=== PATIENT | male | born 2000 | race Two or more races ===

== ENCOUNTER 2019-03-16 13:38 | Emergency (ER) | payer BC, OTHER ==
[~2019-03-16] VITALS: Ht 175.3 cm; Wt 84.8 kg
[2019-03-16 13:44] VITALS: BP 146/84
[2019-03-16] MEDS ORDERED: methylPREDNISolone SOD SUCC 125 MG/2 ML VL IM ONE (14:15)
[2019-03-16] MEDS ORDERED: cefTRIAXone SOD 1,000 MG VL IM ONE (14:15)
== END 2019-03-16 14:44 | disposition home or self-care (01) ==
LOC: ER 13:40
DX: J03.90 Acute tonsillitis, unspecified (principal); H66.92 Otitis media, unspecified, left ear; I10 Essential (primary) hypertension; Z90.49 Acquired absence of other specified parts of digestive tract
CPT/HCPCS: 96372; 99283; J0696; J2930

== ENCOUNTER 2019-04-14 14:58 | Inpatient (IN) | payer OTHER ==
[~2019-04-14] VITALS: Ht 175.3 cm; Wt 79.0 kg
[2019-04-14] MEDS ORDERED: SODIUM CHLORIDE 0.9% 1,000 ML IVB ONE (15:52)
[2019-04-14] MEDS ORDERED: ONDANSETRON HCL 4 MG/2 ML VIAL IV ONE ×2 (16:00→17:15)
[2019-04-14 16:17] LABS: Albumin 2.8 g/dL (3.4-5.0); Potassium 3.2 mmol/L (3.5-5.1)
[2019-04-14 16:18] LABS: Basophils # (auto) 0 uL; Eosinophils # (auto) 0.1 uL; Hematocrit 42.9 % (41.0-53.0); Hemoglobin 14.4 g/dL (13.5-17.5)
[2019-04-14 16:19] LABS: Basophils % (auto) 0.1 % (0.0-2.0); Eosinophils % (auto) 0.5 % (0.0-7.0); Lymphocytes # (auto) 0.4 uL; Lymphocytes % (auto) 2.7 % (10.0-50.0); Mean Corpuscular Hgb Conc. 33.5 g/dL (32.0-36.0); Mean Corpuscular Volume 77.6 fL (80.0-100.0); Monocytes # (auto) 0.2 uL; Monocytes % (auto) 1.6 % (0.0-12.0); Neutrophils # (auto) 14.9 uL; Neutrophils % (auto) 95.1 % (37.0-80.0); Platelet Count (auto) 270 10^3/uL (140-450); Red Blood Cells 5.53 10^6/uL (4.5-5.90); Red Cell Distribution Width 14.8 % (11.8-14.3); White Blood Cell 15.6 10^3/uL (4.4-10.8)
[2019-04-14 16:20] LABS: BUN/Creatinine Ratio 11.9; Bilirubin, Total 0.7 mg/dL (0.2-1.0); Calcium 8.6 mg/dL (8.5-10.1); Total Protein 8.6 g/dL (6.4-8.2)
[2019-04-14 16:47] LABS: INR 1.2 (0.9-1.15)
[2019-04-14 16:48] LABS: Magnesium 2.6 mg/dL (1.6-2.6)
[2019-04-14] MEDS ORDERED: MORPHINE SULF INJ 2 MG/ML SYRINGE 1ML IV ONE (17:15)
[2019-04-14] MEDS ORDERED: cefTRIAXone 1GM/50ML D5W 50 ML IV ONE (17:15)
[2019-04-14 17:31] LABS: Lactic Acid w/Reflex 2.1 mmol/L (0.4-2.0)
[2019-04-14] MEDS ORDERED: NITROGLYCERIN 0.4 MG SL TAB SL PRN (18:00)
[2019-04-14] MEDS ORDERED: ACETAMINOPHEN 500 MG TAB PO PRN (18:00)
[2019-04-14] MEDS ORDERED: MORPHINE SULF INJ 2 MG/ML SYRINGE 1ML IV PRN (18:00)
[2019-04-14] MEDS ORDERED: POTASSIUM CHL 20 Meq TABLET PO ONE (18:15)
[2019-04-14] MEDS: AZITHROMYCIN 500MG/ 250ML 250 ML IV SCH (18:41)
[2019-04-14] MEDS: IPRATROPIUM BROM 0.5 MG/2.5ML INH SOL NEB SCH (18:42)
[2019-04-14] MEDS: ALBUTEROL SULF 2.5 MG/0.5ML(0.5%) NEB SOLN NEB SCH (18:42)
[2019-04-14 19:37] VITALS: BP 136/77
[2019-04-14 19:52] VITALS: BP 140/72
--- NOTE | 2019-04-14 20:16 | NUR ---
Telemetry admit from ER SANDY ALAS admitted to Telemetry unit after SBAR received. Patient oriented to Don Mae, primary RN, unit, room, bed, and unit policies regarding patient care and visiting hours. Patient now on continuous telemetry monitoring, tele box # [28] and telemetry reading on arrival to unit is [ST 104]. Patient placed on bedside oxygen, weighed by bedscale and encouraged to call if they need something. All questions and concerns addressed, patient verbalized understanding. Note: []
--- NOTE | 2019-04-14 21:00 | NUR ---
URINE SAMPLE AND FLU SWAB COLLECTED AND SENT TO LAB. CONTINUE TO MONITOR.
[2019-04-14 21:10] LABS: Urine Bacteria FEW /hpf (None Seen); Urine Blood Negative /uL (Negative); Urine Mucus FEW (None Seen); Urine Specific Gravity 1.038 (1.001-1.035); Urine WBC 3 /hpf (0 - 3)
[2019-04-14 21:29] LABS: Amphetamine Screen, Urine NEGATIVE (NEGATIVE); Barbiturate Scree,Urine NEGATIVE (NEGATIVE); Benzodiazephine Screen, Urine NEGATIVE (NEGATIVE); Cocaine Screen, Urine NEGATIVE (NEGATIVE); Opiate Scree,Urine NEGATIVE (NEGATIVE); Phencyclidine Screen, Urine NEGATIVE (NEGATIVE)
[2019-04-14 21:45] LABS: Cannabinoid Screen, Urine POSITIVE (NEGATIVE)
[2019-04-14] MEDS: MORPHINE SULF INJ 2 MG/ML SYRINGE 1ML IV PRN (21:46)
[2019-04-14] MEDS: ONDANSETRON HCL 4 MG/2 ML VIAL IV PRN (21:46)
--- NOTE | 2019-04-14 21:50 | NUR ---
PATIENT C/O PAIN @ 03/30. MEDICATED PATIENT ORDERED. CONTINUE TO MONITOR.
[2019-04-14 22:00] VITALS: BP 140/74
--- NOTE | 2019-04-14 22:45 | NUR ---
RT PAGED FOR PATIENT. PATIENT WOULD LIKE TO HAVE MASK INSTEAD OF NC FOR OXYGEN. INSTRUCTED PATIENT THAT HE DID NOT NEED MORE OXYGEN. BUT PATIENT STATED THAT HE DID NOT LIKE THE NC. RT WILL COME TO CHECK PATIENT LATER. CONTINUE TO MONITOR.
--- NOTE | 2019-04-14 22:50 | NUR ---
Respiratory note: CALLED TO BEDSIDE BY RN REGARDING PTS O2. ENTERED ROOM, PT COMPLAINING THAT N/C IS UNCOMFORTABLE AND HE IS NOT ABLE TO SLEEP WITH IT. PT IS ON 2L N/C, 94%. INFORMED PT HIS O2 SATURATION IS SUFFICIENT AND HE DOES NOT NEED TO WEAR A MASK. PT VERBALIZED UNDERSTANDING.
[2019-04-14] MEDS ORDERED: ACET1CAP14 PO (23:53)
[2019-04-14] MEDS ORDERED: CIPR-217 PO (23:53)
[2019-04-14] MEDS ORDERED: METR500T14 PO (23:53)
[2019-04-14] MEDS ORDERED: OMEP20TA PO (23:53)
[2019-04-14] MEDS ORDERED: ONDA-144 PO (23:53)
--- NOTE | 2019-04-15 01:30 | NUR ---
RT PAGED AGAIN FOR PATIENT TO CHANGE TO MASK INSTEAD OF NC. PATIENT'S O2 SAT WAS 84% ON RA, AND 92% ON 2L/NC. NEED RT COME TO CHECK PATIENT FOR THAT. CONTINUE TO MONITOR.
[2019-04-15] MEDS: MORPHINE SULF INJ 2 MG/ML SYRINGE 1ML IV PRN ×4 (01:51→18:07)
[2019-04-15] MEDS: ONDANSETRON HCL 4 MG/2 ML VIAL IV PRN ×3 (01:52→21:41)
--- NOTE | 2019-04-15 01:52 | NUR ---
PAIN MEDICATION GIVEN FOR PAIN @ 04/30. CONTINUE TO MONITOR.
--- NOTE | 2019-04-15 02:15 | NUR ---
RT AT BEDSIDE
--- NOTE | 2019-04-15 02:17 | NUR ---
Respiratory note: CALLED TO PTS BEDSIDE BY RN DUE TO PT COMPLA Addendum: 04/15/19 at 0253 by JULIET GUARDADO RT Respiratory note: CALLED TO PTS BEDSIDE BY RN DUE TO PT COMPLAINING OF DISCOMFORT FROM N/C. PTS SPO2 90-91% ON 3L N/C IN PTS MOUTH. HR 110, RR 23. PT COMPLAINING THAT NC IS UNCOMFORTABLE AND DRYING HIS MOUTH OUT. PT PLACED ON HUMIDIFIED O2 VIA N/C, INCREASED TO 4LPM AND PLACED BACK IN PTS NOSE. INSTRUCTED PT ON IMPORTANCE OF WEARING OXYGEN, PT VERBALIZED UNDERSTANDING. WILL CHECK BACK ON PT.
--- NOTE | 2019-04-15 03:33 | NUR ---
PATIENT'S TEMP 101. MEDICATED PATIENT ORDERED. CONTINUE TO MONITOR.
[2019-04-15 04:37] VITALS: BP 158/80
[2019-04-15] MEDS: ALBUTEROL SULF 2.5 MG/0.5ML(0.5%) NEB SOLN NEB SCH ×3 (05:48→19:14)
[2019-04-15] MEDS: IPRATROPIUM BROM 0.5 MG/2.5ML INH SOL NEB SCH ×3 (05:48→19:14)
--- NOTE | 2019-04-15 05:59 | NUR ---
PAIN MEDICATION GIVEN FOR PAIN @ 04/30. CONTINUE TO MONITOR.
--- NOTE | 2019-04-15 06:01 | NUR ---
RT AT BEDSIDE.
[2019-04-15 06:11] LABS: Basophils # (auto) 0 uL; Eosinophils # (auto) 0.1 uL; Mean Corpuscular Hemoglobin 26.3 pg (28.0-32.0); Monocytes # (auto) 0.3 uL
[2019-04-15 06:15] LABS: Basophils % (auto) 0.2 % (0.0-2.0); Eosinophils % (auto) 0.6 % (0.0-7.0); Hematocrit 39.5 % (41.0-53.0); Hemoglobin 13.4 g/dL (13.5-17.5); Lymphocytes # (auto) 0.5 uL; Lymphocytes % (auto) 3.6 % (10.0-50.0); Mean Corpuscular Hgb Conc. 33.9 g/dL (32.0-36.0); Mean Corpuscular Volume 77.5 fL (80.0-100.0); Monocytes % (auto) 2.6 % (0.0-12.0); Neutrophils # (auto) 11.6 uL; Platelet Count (auto) 207 10^3/uL (140-450); Red Cell Distribution Width 14.4 % (11.8-14.3); White Blood Cell 12.5 10^3/uL (4.4-10.8)
[2019-04-15 06:32] LABS: Potassium 3.4 mmol/L (3.5-5.1)
[2019-04-15 06:36] LABS: BUN/Creatinine Ratio 9.5; Calcium 7.6 mg/dL (8.5-10.1)
--- NOTE | 2019-04-15 07:08 | NUR ---
PATIENT ALERT AND ORIENTED. MULTIPLE COMPLAINTS OF PAIN LAST NIGHT. INFLUENZA A AND B REPORTED NEGATIVE BY MIXER FOAM RUBBER. PATIENT COMPLAINED OF COUGHING UP BLOOD BUT UNABLE TO DETERMINE IF BLOOD OR RED JELLO BY MIXER FOAM RUBBER
[2019-04-15 09:00] VITALS: BP 132/78
[2019-04-15] MEDS: cefTRIAXone 1GM/50ML D5W 50 ML IV SCH (09:14)
[2019-04-15] MEDS: AZITHROMYCIN 500MG/ 250ML 250 ML IV SCH (09:23)
[2019-04-15] MEDS: HYDROcodone-ACET 5/325MG TAB PO PRN ×2 (09:23→21:41)
[2019-04-15] MEDS: FAMOTIDINE 20 MG TAB PO SCH (09:24)
[2019-04-15] MEDS ORDERED: POTASSIUM CHL 20 Meq TABLET PO ONE (10:15)
[2019-04-15] MEDS ORDERED: FUROSEMIDE 20 MG/2 ML VIAL IV ONE (10:30)
--- NOTE | 2019-04-15 11:56 | NUR ---
Nutrition consult/assessment Notes please see attached link for complete assessment Est. Needs BW (85 kg): 0687-5071 kcal (23-25 kcal/kg), 85-93 g protein (1.0-1.1 g/kg). Will continue to monitor pertinent labs and reassess nutrient need prn Addendum: 04/15/19 at [address] Amended: Links added.
[2019-04-15 12:39] VITALS: BP 153/88
[2019-04-15] MEDS ORDERED: IOHEXOL 350 MG/ML 100ML IJ ONE (14:03)
[2019-04-15 17:00] VITALS: BP 153/77
[2019-04-15] MEDS ORDERED: LISINOPRIL 5 MG TAB PO ONE (17:00)
--- NOTE | 2019-04-15 18:17 | NUR ---
ALE HOSElia GIVEN AND PUT ONTO PATIENT PER DR. ADAMSON
[2019-04-15 18:56] LABS: Cholesterol 107 mg/dL (< 200); HDL Cholesterol 9 mg/dL (40-59); LDL Cholesterol 50 mg/dL (< 100); Triglycerides 191 mg/dL (< 150)
--- NOTE | 2019-04-15 19:30 | NUR ---
Opening Shift Note Assumed care of patient. Patient is awake and alert. Instructed on POC and to call for assist PRN, will continue to monitor. Bed locked in lowest position and bed rails up x2. Call light within reach.
--- NOTE | 2019-04-15 19:30 | NUR ---
RT at bedside
[2019-04-15 22:00] VITALS: BP 154/83
[2019-04-16] VITALS (7 sets, daily range): BP systolic 134–160; BP diastolic 70–100
[2019-04-16] MEDS: MORPHINE SULF INJ 2 MG/ML SYRINGE 1ML IV PRN ×3 (02:18→21:38)
[2019-04-16] MEDS: ALBUTEROL SULF 2.5 MG/0.5ML(0.5%) NEB SOLN NEB SCH ×3 (05:45→18:19)
[2019-04-16] MEDS: IPRATROPIUM BROM 0.5 MG/2.5ML INH SOL NEB SCH ×3 (05:45→18:19)
[2019-04-16 05:54] LABS: Albumin 2.4 g/dL (3.4-5.0); Calcium 8.5 mg/dL (8.5-10.1); Potassium 3.4 mmol/L (3.5-5.1)
[2019-04-16 05:59] LABS: BUN/Creatinine Ratio 12.2; Bilirubin, Total 0.7 mg/dL (0.2-1.0); Total Protein 7.8 g/dL (6.4-8.2)
[2019-04-16 06:06] LABS: Basophils # (auto) 0 uL; Basophils % (auto) 0.1 % (0.0-2.0); Eosinophils # (auto) 0.2 uL; Eosinophils % (auto) 1.4 % (0.0-7.0); Lymphocytes # (auto) 0.6 uL; Lymphocytes % (auto) 4.9 % (10.0-50.0); Mean Corpuscular Hemoglobin 26.1 pg (28.0-32.0); Mean Corpuscular Hgb Conc. 34.1 g/dL (32.0-36.0); Mean Corpuscular Volume 76.6 fL (80.0-100.0); Monocytes # (auto) 0.3 uL; Monocytes % (auto) 2.2 % (0.0-12.0); Neutrophils # (auto) 10.4 uL; Neutrophils % (auto) 91.4 % (37.0-80.0); Platelet Count (auto) 188 10^3/uL (140-450); Red Blood Cells 5.36 10^6/uL (4.5-5.90); Red Cell Distribution Width 14.6 % (11.8-14.3); White Blood Cell 11.4 10^3/uL (4.4-10.8)
[2019-04-16] MEDS: AZITHROMYCIN 500MG/ 250ML 250 ML IV SCH (09:08)
[2019-04-16] MEDS: cefTRIAXone 1GM/50ML D5W 50 ML IV SCH (09:08)
[2019-04-16] MEDS: FAMOTIDINE 20 MG TAB PO SCH (09:09)
[2019-04-16] MEDS: HYDROcodone-ACET 5/325MG TAB PO PRN (09:14)
[2019-04-16] MEDS: ONDANSETRON HCL 4 MG/2 ML VIAL IV PRN (09:18)
[2019-04-16] MEDS ORDERED: LISINOPRIL 5 MG TAB PO SCH (10:00)
[2019-04-16] MEDS ORDERED: POTASSIUM CHL 20 Meq TABLET PO ONE (10:30)
[2019-04-16] MEDS: LISINOPRIL 5 MG TAB PO SCH (11:52)
[2019-04-16] MEDS ORDERED: ALBUTEROL SULF 2.5 MG/0.5ML(0.5%) NEB SOLN ONE (21:23)
[2019-04-16] MEDS: ALBUTEROL SULF 2.5 MG/0.5ML(0.5%) NEB SOLN NEB PRN (21:30)
[2019-04-16] MEDS: TEMAZEPAM 15 MG CAP PO PRN (21:59)
[2019-04-17] VITALS (8 sets, daily range): BP systolic 134–146; BP diastolic 68–82
[2019-04-17] MEDS: HYDROcodone-ACET 5/325MG TAB PO PRN ×3 (01:28→18:23)
[2019-04-17] MEDS: IPRATROPIUM BROM 0.5 MG/2.5ML INH SOL NEB SCH ×3 (05:51→18:27)
[2019-04-17] MEDS: ALBUTEROL SULF 2.5 MG/0.5ML(0.5%) NEB SOLN NEB SCH ×3 (05:51→18:27)
[2019-04-17 05:59] LABS: Hemoglobin 14.6 g/dL (13.5-17.5)
--- NOTE | 2019-04-17 06:00 | NUR ---
IS and Deep Breathe exercises Patient instructed on indication for deep breathing exercise and incentive spirometer, patient verbalized understanding. Patient was able to return proper demonstration on teaching. Inspire volume 1000ml, tolerates well. On oxygen at 6L via NC.
[2019-04-17 06:02] LABS: Hematocrit 43.7 % (41.0-53.0); Mean Corpuscular Hgb Conc. 33.5 g/dL (32.0-36.0); Mean Corpuscular Volume 77.6 fL (80.0-100.0); Platelet Count (auto) 222 10^3/uL (140-450); Red Blood Cells 5.63 10^6/uL (4.5-5.90); Red Cell Distribution Width 14.8 % (11.8-14.3); White Blood Cell 9.3 10^3/uL (4.4-10.8)
[2019-04-17 06:28] LABS: BUN/Creatinine Ratio 14.5; Calcium 8.6 mg/dL (8.5-10.1); Potassium 3.7 mmol/L (3.5-5.1)
--- NOTE | 2019-04-17 07:00 | NUR ---
Closing Note patient awake resting in bed with oxygen on at 6L via NC with o2 sat 92%, even and unlabored respirations. No s/s of distress. Endorsed care to day shift JAD Akers.
[2019-04-17 07:11] LABS: Basophils % (manual) 0 (0.0-2.0); Blast Cells 0; Promyelocytes % 0; Reactive Lymphocytes 0
[2019-04-17 07:57] LABS: Band Neutrophils % (manual) 10; Eosinophils % (manual) 3 (0-7); Lymphocytes % (manual) 10 (10.0-50.0); Metamyelocytes % 3; Monocytes % (manual) 3 (0-12); Myelocytes % 1
[2019-04-17] MEDS: FAMOTIDINE 20 MG TAB PO SCH (09:07)
[2019-04-17] MEDS: AZITHROMYCIN 500MG/ 250ML 250 ML IV SCH (09:08)
[2019-04-17] MEDS: cefTRIAXone 1GM/50ML D5W 50 ML IV SCH (09:08)
[2019-04-17] MEDS: LISINOPRIL 5 MG TAB PO SCH ×2 (09:08→10:20)
[2019-04-17] MEDS: MORPHINE SULF INJ 2 MG/ML SYRINGE 1ML IV PRN ×3 (09:44→21:06)
[2019-04-17] MEDS ORDERED: POTASSIUM CHL 20 Meq TABLET PO ONE (10:00)
[2019-04-17] MEDS ORDERED: FUROSEMIDE 40 MG/4 ML VIAL IV ONE (10:00)
[2019-04-17] MEDS: ONDANSETRON HCL 4 MG/2 ML VIAL IV PRN ×2 (12:59→18:22)
--- NOTE | 2019-04-17 19:45 | NUR ---
Opening Shift Note Assumed care of patient, awake and alert, oriented x 4. On oxygen 6L via NC with even and unlabored respirations. Patient using incentive spirometer with proper return demonstration of 1500ml inspire volume. No S/S of distress or SOB at this time. 18g to left forearm intact and patent. Bed low locked position with side rails up x 2 and call light within reach. Family at bedside, updated on POC, all questions and concerns addressed. Instructed on POC and to call for assist PRN, will continue to monitor for changes Q1hr and PRN.
[2019-04-18] MEDS: HYDROcodone-ACET 5/325MG TAB PO PRN ×2 (01:53→11:31)
[2019-04-18] MEDS: TEMAZEPAM 15 MG CAP PO PRN (01:53)
[2019-04-18 05:37] VITALS: BP 137/72
[2019-04-18 05:58] LABS: Red Cell Distribution Width 14.5 % (11.8-14.3)
[2019-04-18 06:03] LABS: Hematocrit 47.4 % (41.0-53.0); Hemoglobin 15.8 g/dL (13.5-17.5); Mean Corpuscular Hemoglobin 25.6 pg (28.0-32.0); Mean Corpuscular Hgb Conc. 33.4 g/dL (32.0-36.0); Mean Corpuscular Volume 76.8 fL (80.0-100.0); Platelet Count (auto) 315 10^3/uL (140-450); Red Blood Cells 6.18 10^6/uL (4.5-5.90)
[2019-04-18 06:10] LABS: Albumin 3.2 g/dL (3.4-5.0); BUN/Creatinine Ratio 16.5; Calcium 9.1 mg/dL (8.5-10.1); Potassium 3.8 mmol/L (3.5-5.1)
[2019-04-18 06:11] LABS: Basophils % (manual) 0 (0.0-2.0); Blast Cells 0; Promyelocytes % 0; Reactive Lymphocytes 0
[2019-04-18 06:13] LABS: Bilirubin, Total 0.4 mg/dL (0.2-1.0); Total Protein 8.5 g/dL (6.4-8.2)
[2019-04-18] MEDS: ALBUTEROL SULF 2.5 MG/0.5ML(0.5%) NEB SOLN NEB SCH ×3 (06:35→18:23)
[2019-04-18] MEDS: IPRATROPIUM BROM 0.5 MG/2.5ML INH SOL NEB SCH ×3 (06:35→18:23)
--- NOTE | 2019-04-18 06:55 | NUR ---
Closing Note patient awake resting in bed with oxygen on at 4L via NC with even and unlabored respirations. No s/s of distress. Endorsed care to day shift RN Oswald.
[2019-04-18 08:00] VITALS: BP 112/72
[2019-04-18 08:03] LABS: Band Neutrophils % (manual) 7; Eosinophils % (manual) 3 (0-7); Lymphocytes % (manual) 17 (10.0-50.0); Metamyelocytes % 1; Monocytes % (manual) 1 (0-12); Myelocytes % 1
[2019-04-18 09:00] VITALS: BP 152/79
[2019-04-18] MEDS: MORPHINE SULF INJ 2 MG/ML SYRINGE 1ML IV PRN ×3 (09:24→20:20)
[2019-04-18] MEDS: AZITHROMYCIN 500MG/ 250ML 250 ML IV SCH (09:25)
[2019-04-18] MEDS: cefTRIAXone 1GM/50ML D5W 50 ML IV SCH (09:25)
[2019-04-18] MEDS: FAMOTIDINE 20 MG TAB PO SCH (09:27)
[2019-04-18] MEDS: LISINOPRIL 5 MG TAB PO SCH (09:27)
--- NOTE | 2019-04-18 11:17 | NUR ---
Nutrition Follow-up Notes Wt.: 82.3 kg pt was sleeping with no family by beside. pt with sepsis due to PNA. per nursing pt with no distress noted. pt is currently on regular diet with inadequate PO 50% x 2 per RN doc. Est. Needs BW (85 kg): 2093-1040 kcal (23-25 kcal/kg), 85-93 g protein (1.0-1.1 g/kg). Will continue to monitor pertinent labs and reassess nutrient need prn Labs: AST/ALT 122/180 H, ALB 3.2 L. Skin: Brett scale 22 low risk skin intact per RN doc GI: Pt has no BM reported per silk snapper. PES: Altered nutrition related lab values r/t acute/chronic medical condition aeb hyperglycemia, hypocalcemia Will continue to monitor PO intake, skin status, pertinent labs and weight trend. F/u in 3-5 days. Rec.: 1.) consider ensure Enlive 1 carton bid if PO is low. 2) continue assistance with meals 3) continue current plan of care
[2019-04-18 11:44] LABS: Hepatitis A Ab IgM Negative; Hepatitis B Core IgM Negative; Hepatitis B Surface Antigen Negative (Negative); Hepatitis C Antibody Negative (Negative)
--- NOTE | 2019-04-18 12:33 | NUR ---
I faxed higher level of care order/clinical information to [facility] as well as to [employer] (health plan)-requesting authorization for transfer and transportation.
--- NOTE | 2019-04-18 12:52 | NUR ---
I called [facility] [employer] Adrienne [phone] and left message requesting a list of contracted higher level of care facilities as well as authorization for transfer and transportation. Awaiting return call.
[2019-04-18 13:00] VITALS: BP 139/68
--- NOTE | 2019-04-18 14:16 | NUR ---
I faxed the higher level of care order/clinical information to [facility] and [facility].
--- NOTE | 2019-04-18 14:18 | NUR ---
I received a message from Adrienne at [facility] letting me know that prior authorization is not required for transfer to higher level of care or for transportation-for further questions she referred me to call their intake line [phone]. I called and it rang and rang.
--- NOTE | 2019-04-18 14:22 | NUR ---
I received a call from Holly at [facility] center, provided her with additional clinical information as requested, she will have her MD rosy Lal to determine if they are able to accept this patient.
[2019-04-18] MEDS: ONDANSETRON HCL 4 MG/2 ML VIAL IV PRN ×2 (15:44→20:21)
[2019-04-18] MEDS: ALPRAZolam 0.25 MG TAB PO PRN (15:45)
[2019-04-18 17:09] VITALS: BP 136/59
--- NOTE | 2019-04-18 19:30 | NUR ---
opening shift note; Awake alert and oriented. Complains of pain 02/27. Oxygen via NC. SOB on exertion or when removing O2. Skin clear. Iv to left FA patent and saline locked. Updated on POC and awaiting transfer. No distress at this time. Call light within reach
[2019-04-19 04:30] VITALS: BP 148/78
[2019-04-19 06:14] LABS: Albumin 3.3 g/dL (3.4-5.0); Calcium 8.6 mg/dL (8.5-10.1)
[2019-04-19 06:17] LABS: Bilirubin, Total 0.4 mg/dL (0.2-1.0); Total Protein 8.4 g/dL (6.4-8.2)
[2019-04-19] MEDS: MORPHINE SULF INJ 2 MG/ML SYRINGE 1ML IV PRN ×3 (06:17→17:03)
[2019-04-19] MEDS: ONDANSETRON HCL 4 MG/2 ML VIAL IV PRN ×3 (06:18→17:03)
[2019-04-19] MEDS: ALPRAZolam 0.25 MG TAB PO PRN (06:18)
[2019-04-19] MEDS: IPRATROPIUM BROM 0.5 MG/2.5ML INH SOL NEB SCH ×3 (06:50→18:51)
[2019-04-19] MEDS: ALBUTEROL SULF 2.5 MG/0.5ML(0.5%) NEB SOLN NEB SCH ×3 (06:50→18:51)
[2019-04-19] MEDS: HYDROcodone-ACET 5/325MG TAB PO PRN ×3 (08:22→21:01)
[2019-04-19 09:00] VITALS: BP 131/84
[2019-04-19] MEDS: cefTRIAXone 1GM/50ML D5W 50 ML IV SCH (09:39)
[2019-04-19] MEDS: LISINOPRIL 5 MG TAB PO SCH (09:52)
[2019-04-19] MEDS: FAMOTIDINE 20 MG TAB PO SCH (09:52)
[2019-04-19] MEDS: AZITHROMYCIN 500MG/ 250ML 250 ML IV SCH (09:52)
--- NOTE | 2019-04-19 10:05 | NUR ---
I spoke with Yari at [facility] transfer center, she said they are still in the process of verifying patient's insurance-I let her know that I faxed them a copy of patient's insurance card-she will review it and give me a call back.
--- NOTE | 2019-04-19 10:23 | NUR ---
I received a call from Yari at the [facility] transfer center, she said they are still having trouble verifying patient's financial information, in their system they are bringing the patient up as ineligible. I called [facility] [employer] Adrienne and left message asking for assistance in transferring this patient-requested faxed printout of patient's eligibility.
[2019-04-19 13:00] VITALS: BP 116/64
[2019-04-19 17:18] VITALS: BP 137/72
--- NOTE | 2019-04-19 17:29 | NUR ---
assessment Patient has no post discharge needs at this time. Addendum: 04/19/19 at 1730 by Yasmeen TUBBS Amended: Links added.
--- NOTE | 2019-04-19 19:14 | NUR ---
Opening Shift Note Assumed care of patient, awake and alert. No S/S of distress/SOB or pain. Bed is locked and in lowest position and call light is within reach. Instructed on POC and to call for assist PRN, and patient verbalized understanding. Will continue to monitor for changes Q1hr and PRN.
[2019-04-19] MEDS: TEMAZEPAM 15 MG CAP PO PRN (22:10)
[2019-04-19 23:38] VITALS: BP_SYST 112; BP_SYST 158; BP_DIAS 65; BP_DIAS 78
[2019-04-20] VITALS (8 sets, daily range): BP systolic 135–149; BP diastolic 57–84
--- NOTE | 2019-04-20 02:15 | NUR ---
Receive report from Rhianna/JAD, pt resting comfortably, call light within reach, no pain or distress noted or reported at this time, will continue to monitor pt.
[2019-04-20 05:30] LABS: Hemoglobin 15.8 g/dL (13.5-17.5)
[2019-04-20 05:33] LABS: Hematocrit 47.4 % (41.0-53.0); Mean Corpuscular Hemoglobin 25.6 pg (28.0-32.0); Mean Corpuscular Hgb Conc. 33.4 g/dL (32.0-36.0); Mean Corpuscular Volume 76.6 fL (80.0-100.0); Platelet Count (auto) 349 10^3/uL (140-450); Red Blood Cells 6.18 10^6/uL (4.5-5.90); Red Cell Distribution Width 14.3 % (11.8-14.3); White Blood Cell 14.2 10^3/uL (4.4-10.8)
[2019-04-20 05:42] LABS: Albumin 3.3 g/dL (3.4-5.0); Basophils % (manual) 0 (0.0-2.0); Blast Cells 0; Calcium 8.8 mg/dL (8.5-10.1); Potassium 4.3 mmol/L (3.5-5.1); Promyelocytes % 0; Reactive Lymphocytes 0
[2019-04-20 05:45] LABS: Bilirubin, Total 0.4 mg/dL (0.2-1.0)
[2019-04-20] MEDS: ALBUTEROL SULF 2.5 MG/0.5ML(0.5%) NEB SOLN NEB SCH ×3 (05:59→17:48)
[2019-04-20] MEDS: IPRATROPIUM BROM 0.5 MG/2.5ML INH SOL NEB SCH ×3 (05:59→17:48)
[2019-04-20] MEDS: ONDANSETRON HCL 4 MG/2 ML VIAL IV PRN ×4 (06:09→20:53)
[2019-04-20] MEDS: MORPHINE SULF INJ 2 MG/ML SYRINGE 1ML IV PRN ×4 (06:09→20:53)
[2019-04-20 08:58] LABS: Band Neutrophils % (manual) 7; Eosinophils % (manual) 3 (0-7); Lymphocytes % (manual) 17 (10.0-50.0); Monocytes % (manual) 5 (0-12)
[2019-04-20 08:59] LABS: Metamyelocytes % 3; Myelocytes % 2
[2019-04-20] MEDS ORDERED: BUDESONIDE (INHALATION) 0.5 MG/2 ML NEB NEB ONE (09:45)
[2019-04-20] MEDS: FAMOTIDINE 20 MG TAB PO SCH (09:50)
[2019-04-20] MEDS: cefTRIAXone 1GM/50ML D5W 50 ML IV SCH (09:51)
[2019-04-20] MEDS: LISINOPRIL 20 MG TAB PO SCH (09:51)
[2019-04-20] MEDS: AZITHROMYCIN 500MG/ 250ML 250 ML IV SCH (11:15)
[2019-04-20] MEDS: ALPRAZolam 0.25 MG TAB PO PRN (14:00)
[2019-04-20] MEDS: HYDROcodone-ACET 5/325MG TAB PO PRN (14:01)
[2019-04-20] MEDS: BUDESONIDE (INHALATION) 0.5 MG/2 ML NEB NEB SCH (17:48)
--- NOTE | 2019-04-20 20:00 | NUR ---
Opening Shift Note Assumed care of patient, awake and alert x4. No S/S of distress/SOB, request next morphine for abd pain when due, declines norco at this time. Instructed on POC and to call for assistance PRN, will continue to monitor for changes Q1hr and PRN.
--- NOTE | 2019-04-20 20:53 | NUR ---
Pain Management Pt requests pain medication for abdominal pain, medicated as ordered. Instructed on side effects of medications. Nausea medication administered for nausea with pain medication. Instructed to call prn, call light within reach
[2019-04-20] MEDS: TEMAZEPAM 15 MG CAP PO PRN (23:43)
[2019-04-21] MEDS: HYDROcodone-ACET 5/325MG TAB PO PRN ×2 (00:22→11:54)
--- NOTE | 2019-04-21 00:22 | NUR ---
Pain Management Pt medicated for c/o of abdominal pain, norco given per patient request. Will continue to monitor for pain relief, call light within reach
[2019-04-21 05:00] VITALS: BP 119/59
[2019-04-21 05:46] LABS: Hemoglobin 15.5 g/dL (13.5-17.5)
[2019-04-21 05:52] LABS: Hematocrit 46.6 % (41.0-53.0); Mean Corpuscular Hemoglobin 25.5 pg (28.0-32.0); Mean Corpuscular Hgb Conc. 33.3 g/dL (32.0-36.0); Mean Corpuscular Volume 76.5 fL (80.0-100.0); Platelet Count (auto) 341 10^3/uL (140-450); Red Blood Cells 6.08 10^6/uL (4.5-5.90); Red Cell Distribution Width 14.2 % (11.8-14.3)
[2019-04-21 06:04] LABS: Basophils % (manual) 0 (0.0-2.0); Blast Cells 0; Metamyelocytes % 0; Myelocytes % 0; Promyelocytes % 0; Reactive Lymphocytes 0
[2019-04-21 06:17] LABS: Potassium 4.3 mmol/L (3.5-5.1)
[2019-04-21] MEDS: IPRATROPIUM BROM 0.5 MG/2.5ML INH SOL NEB SCH ×3 (06:21→17:53)
[2019-04-21] MEDS: ALBUTEROL SULF 2.5 MG/0.5ML(0.5%) NEB SOLN NEB SCH ×3 (06:21→17:53)
[2019-04-21] MEDS: BUDESONIDE (INHALATION) 0.5 MG/2 ML NEB NEB SCH ×2 (06:21→17:53)
[2019-04-21 06:30] LABS: Albumin 3.5 g/dL (3.4-5.0); BUN/Creatinine Ratio 14.4; Bilirubin, Total 0.5 mg/dL (0.2-1.0); Calcium 8.6 mg/dL (8.5-10.1); Total Protein 8.1 g/dL (6.4-8.2)
[2019-04-21 06:48] LABS: Band Neutrophils % (manual) 4; Eosinophils % (manual) 1 (0-7); Lymphocytes % (manual) 25 (10.0-50.0); Monocytes % (manual) 9 (0-12)
--- NOTE | 2019-04-21 07:15 | NUR ---
Opening Shift Note Assumed care of patient, awake and alert. No S/S of distress/SOB or pain. Instructed on POC and to call for assist PRN, call light within patient reach, bed in low position. Will continue to monitor for changes Q1hr and PRN.
[2019-04-21 08:00] VITALS: BP 139/72
[2019-04-21] MEDS: ONDANSETRON HCL 4 MG/2 ML VIAL IV PRN ×3 (08:08→20:30)
[2019-04-21] MEDS: MORPHINE SULF INJ 2 MG/ML SYRINGE 1ML IV PRN ×3 (08:09→20:30)
[2019-04-21 08:31] VITALS: BP 139/72
[2019-04-21] MEDS: FAMOTIDINE 20 MG TAB PO SCH (10:54)
[2019-04-21] MEDS: cefTRIAXone 1GM/50ML D5W 50 ML IV SCH (10:55)
[2019-04-21] MEDS: LISINOPRIL 20 MG TAB PO SCH (10:55)
[2019-04-21] MEDS: AZITHROMYCIN 500MG/ 250ML 250 ML IV SCH (11:55)
[2019-04-21 12:30] VITALS: BP 131/62
--- NOTE | 2019-04-21 14:25 | NUR ---
Per doctors order, monitoring patients O2 to remain above 90%. Patient O2 97% on room air. Will continue to monitor.
[2019-04-21 17:22] VITALS: BP 127/65
--- NOTE | 2019-04-21 19:10 | NUR ---
RECEIVED PATIENT, AWAKE, ALERT, ORIENTED X4. NO S/S OF RESPIRATORY DISTRESS. ORIENTED ON PLAN OF CARE. BED IS LOCKED AND IN LOWEST POSITION, SIDE RAILS UP X2, CALL LIGHT WITHIN REACH. WILL CONTINUE TO MONITOR
[2019-04-21] MEDS: ALBUTEROL SULF 2.5 MG/0.5ML(0.5%) NEB SOLN NEB PRN (23:00)
[2019-04-21] MEDS: TEMAZEPAM 15 MG CAP PO PRN (23:26)
[2019-04-21 23:56] VITALS: BP 138/64
[2019-04-22] VITALS (7 sets, daily range): BP systolic 123–161; BP diastolic 69–76
[2019-04-22 05:00] LABS: Hemoglobin 15.5 g/dL (13.5-17.5); Mean Corpuscular Hemoglobin 25.7 pg (28.0-32.0); Mean Corpuscular Hgb Conc. 33.7 g/dL (32.0-36.0)
[2019-04-22 05:01] LABS: Hematocrit 46.1 % (41.0-53.0); Mean Corpuscular Volume 76.3 fL (80.0-100.0); Platelet Count (auto) 356 10^3/uL (140-450); Red Blood Cells 6.04 10^6/uL (4.5-5.90); Red Cell Distribution Width 14.5 % (11.8-14.3); White Blood Cell 13.3 10^3/uL (4.4-10.8)
[2019-04-22 05:17] LABS: Basophils % (manual) 0 (0.0-2.0); Blast Cells 0; Eosinophils % (manual) 0 (0-7); Myelocytes % 0; Promyelocytes % 0; Reactive Lymphocytes 0
[2019-04-22 05:20] LABS: Albumin 3.7 g/dL (3.4-5.0); BUN/Creatinine Ratio 16.5; Potassium 4.3 mmol/L (3.5-5.1)
[2019-04-22 05:22] LABS: Bilirubin, Total 0.3 mg/dL (0.2-1.0); Total Protein 7.8 g/dL (6.4-8.2)
[2019-04-22 06:07] LABS: Band Neutrophils % (manual) 5; Lymphocytes % (manual) 26 (10.0-50.0); Metamyelocytes % 2; Monocytes % (manual) 10 (0-12)
[2019-04-22] MEDS: ONDANSETRON HCL 4 MG/2 ML VIAL IV PRN ×3 (06:41→22:25)
[2019-04-22] MEDS: MORPHINE SULF INJ 2 MG/ML SYRINGE 1ML IV PRN ×3 (06:42→22:25)
[2019-04-22] MEDS: IPRATROPIUM BROM 0.5 MG/2.5ML INH SOL NEB SCH ×3 (06:51→18:04)
[2019-04-22] MEDS: ALBUTEROL SULF 2.5 MG/0.5ML(0.5%) NEB SOLN NEB SCH ×3 (06:51→18:04)
--- NOTE | 2019-04-22 07:17 | NUR ---
CARE ENDORSED TO AM SHIFT RN
--- NOTE | 2019-04-22 07:20 | NUR ---
Opening Shift Note Assumed care of patient, awake and alert and watching movie on laptop. No S/S of distress/SOB or pain. Instructed on POC and to call for assist PRN, call light within reach and bed in lowest position. Will continue to monitor for changes Q1hr and PRN.
[2019-04-22] MEDS: LISINOPRIL 20 MG TAB PO SCH (09:50)
[2019-04-22] MEDS: cefTRIAXone 1GM/50ML D5W 50 ML IV SCH (09:50)
[2019-04-22] MEDS: FAMOTIDINE 20 MG TAB PO SCH (09:50)
[2019-04-22] MEDS: BUDESONIDE (INHALATION) 0.5 MG/2 ML NEB NEB SCH ×2 (11:43→18:04)
--- NOTE | 2019-04-22 11:59 | NUR ---
Dr. Abdullahi bedside with patient, reviewed plan of care with patient.
[2019-04-22] MEDS: AZITHROMYCIN 500MG/ 250ML 250 ML IV SCH (12:02)
--- NOTE | 2019-04-22 16:00 | NUR ---
PATIENT SIGNED AMA FORM, WALKED OUTSIDE, O2 97% ON RA
--- NOTE | 2019-04-22 16:20 | NUR ---
PATIENT RETURNED FROM WALK, O2 98%, HEART RATE 124 AND REPORTED FEELING A LITTLE DIZZY. PATIENT WAS ASSISTED BACK TO ROOM. PATIENT REPORTED THE DIZZINESS SUBSIDED WITHIN 10 MINUTES AFTER RETURNING TO BED.
[2019-04-22] MEDS: HYDROcodone-ACET 5/325MG TAB PO PRN (18:30)
[2019-04-23] MEDS: ALPRAZolam 0.25 MG TAB PO PRN (00:23)
[2019-04-23 05:00] VITALS: BP 132/70
[2019-04-23 05:41] LABS: Hemoglobin 14.9 g/dL (13.5-17.5); Mean Corpuscular Hemoglobin 25.4 pg (28.0-32.0); Mean Corpuscular Hgb Conc. 33.1 g/dL (32.0-36.0)
[2019-04-23 05:44] LABS: Mean Corpuscular Volume 76.6 fL (80.0-100.0); Platelet Count (auto) 353 10^3/uL (140-450); Red Blood Cells 5.88 10^6/uL (4.5-5.90); Red Cell Distribution Width 14.4 % (11.8-14.3); White Blood Cell 11.9 10^3/uL (4.4-10.8)
[2019-04-23 05:49] LABS: Basophils % (manual) 0 (0.0-2.0); Blast Cells 0; Promyelocytes % 0; Reactive Lymphocytes 0
[2019-04-23 06:06] LABS: Potassium 4.2 mmol/L (3.5-5.1)
[2019-04-23 06:12] LABS: Albumin 3.8 g/dL (3.4-5.0); BUN/Creatinine Ratio 12.5; Calcium 8.9 mg/dL (8.5-10.1)
[2019-04-23 06:22] LABS: Bilirubin, Total 0.4 mg/dL (0.2-1.0); Total Protein 7.9 g/dL (6.4-8.2)
[2019-04-23 06:47] LABS: Band Neutrophils % (manual) 7; Eosinophils % (manual) 1 (0-7); Lymphocytes % (manual) 13 (10.0-50.0); Metamyelocytes % 4; Monocytes % (manual) 5 (0-12); Myelocytes % 1
[2019-04-23] MEDS: IPRATROPIUM BROM 0.5 MG/2.5ML INH SOL NEB SCH ×2 (07:03→11:58)
[2019-04-23] MEDS: ALBUTEROL SULF 2.5 MG/0.5ML(0.5%) NEB SOLN NEB SCH ×2 (07:03→11:58)
[2019-04-23] MEDS: BUDESONIDE (INHALATION) 0.5 MG/2 ML NEB NEB SCH (07:03)
--- NOTE | 2019-04-23 07:43 | NUR ---
CARE ENDORSED TO AM SHIFT RN
[2019-04-23] MEDS: HYDROcodone-ACET 5/325MG TAB PO PRN (08:54)
[2019-04-23 09:00] VITALS: BP 136/79
[2019-04-23] MEDS: AZITHROMYCIN 500MG/ 250ML 250 ML IV SCH (09:20)
[2019-04-23] MEDS: cefTRIAXone 1GM/50ML D5W 50 ML IV SCH (09:20)
[2019-04-23] MEDS: LISINOPRIL 20 MG TAB PO SCH (09:21)
[2019-04-23] MEDS: FAMOTIDINE 20 MG TAB PO SCH (09:21)
--- NOTE | 2019-04-23 10:30 | NUR ---
Hospitalist at bedside MD Lal at bedside, aware of patient's status. New orders received for dc home. New prescription obtained for Lisinopril and abx. Will dc as ordered. Patient verbalized understanding.
--- NOTE | 2019-04-23 13:58 | NUR ---
Discharge instructions given as ordered to patient and sister Meredith. spoke to sister extensively regarding f/u instructions and she verbalized understanding. Encourage to follow up with PMD as instructed including cxr and US as ordered. All questions and concerns addressed. Patient verbalized understanding. Medication reconciliation form completed and copy given to patient. Home medications held in Pharmacy returned to patient, and needed vaccines given. IV removed with catheter intact, pressure dressing applied. Patient refused wheelchair, ambulated to vehicle with all personal belongings in no acute distress or sob. Patient instructed that prescribed meds are ready for diamond picker after a Copay of $19.50 but he states he won't be picking them up today. Patient instructed regarding the need to take medications as prescribed he verbalized understanding and states "yeah will see". No distress sob or pain noted at time of departure.
== END 2019-04-23 13:58 | disposition home or self-care (01) | DRG 871 ==
LOC: ER 14:58 → TELE 14:59 → TELE-CENTR 20:00 → CENTRAL 04-19 15:00
PROVIDERS: ADMIT Nurse Practitioner Acute Care; ATTEND Internal Medicine
DX: A41.9 Sepsis, unspecified organism (principal); J96.01 Acute respiratory failure with hypoxia; E44.0 Moderate protein-calorie malnutrition; B19.9 Unspecified viral hepatitis without hepatic coma; E87.1 Hypo-osmolality and hyponatremia; I42.9 Cardiomyopathy, unspecified; J84.114 Acute interstitial pneumonitis; E87.6 Hypokalemia; E66.01 Morbid (severe) obesity due to excess calories; I10 Essential (primary) hypertension; F12.90 Cannabis use, unspecified, uncomplicated; Z68.52 Body mass index [BMI] pediatric, 5th percentile to less than 85th percentile for age; Z79.899 Other long term (current) drug therapy; Z82.49 Family history of ischemic heart disease and other diseases of the circulatory system; Z82.5 Family history of asthma and other chronic lower respiratory diseases; Z91.19 Patient's noncompliance with other medical treatment and regimen; Z83.3 Family history of diabetes mellitus; Z82.3 Family history of stroke; R16.2 Hepatomegaly with splenomegaly, not elsewhere classified
CPT/HCPCS: 36415; 71045; 71046; 71260; 74176; 76705; 80048; 80053; 80061; 80074; 82088; 83520; 83615; 83880; 84244; 84484; 85007; 85025; 85027; 85652; 86141; 86225; 86235; 86256; 86635; 86644; 86645; 86658; 86664; 86703; 87070; 87205; 87278; 93005; 93306; 94640; 94761; 96365; 96367; 96375; 96376; G0378; J0696; J2405

== ENCOUNTER 2019-05-14 11:26 | Emergency (ER) | payer OTHER ==
[~2019-05-14] VITALS: Ht 175.3 cm; Wt 83.9 kg
[~2019-05-14 11:26] MED LIST: ACET1CAP14 PO; CIPR-217 PO; METR500T14 PO; OMEP20TA PO; ONDA-144 PO
[2019-05-14] MEDS ORDERED: SODIUM CHLORIDE 0.9% 1,000 ML IVB ONE (12:11)
[2019-05-14] MEDS ORDERED: FAMOTIDINE (10MG/ML) 2ML VL IV ONE (12:15)
[2019-05-14] MEDS ORDERED: ONDANSETRON HCL 4 MG/2 ML VIAL IV ONE (12:15)
[2019-05-14 12:25] LABS: Basophils # (auto) 0 uL; Basophils % (auto) 0.5 % (0.0-2.0); Eosinophils # (auto) 0.2 uL; Eosinophils % (auto) 2.8 % (0.0-7.0); Hematocrit 41.3 % (41.0-53.0); Hemoglobin 14.1 g/dL (13.5-17.5); Lymphocytes # (auto) 1.3 uL; Mean Corpuscular Hemoglobin 26.3 pg (28.0-32.0); Mean Corpuscular Hgb Conc. 34.1 g/dL (32.0-36.0); Mean Corpuscular Volume 77.1 fL (80.0-100.0); Monocytes # (auto) 0.4 uL; Neutrophils # (auto) 3.9 uL; Neutrophils % (auto) 66.7 % (37.0-80.0); Nucleated Red Blood Cells % 0.1 %; Platelet Count (auto) 179 10^3/uL (140-450); Red Blood Cells 5.36 10^6/uL (4.5-5.90); Red Cell Distribution Width 15.6 % (11.8-14.3); White Blood Cell 5.8 10^3/uL (4.4-10.8)
[2019-05-14 12:28] LABS: Albumin 4.3 g/dL (3.4-5.0); Calcium 9.2 mg/dL (8.5-10.1); Potassium 3.8 mmol/L (3.5-5.1)
[2019-05-14 12:35] LABS: BUN/Creatinine Ratio 10.3; Bilirubin, Total 0.5 mg/dL (0.2-1.0); Total Protein 7.7 g/dL (6.4-8.2)
[2019-05-14 13:26] LABS: Urine Bacteria NONE SEEN /hpf (None Seen); Urine Blood Negative /uL (Negative); Urine Specific Gravity 1.014 (1.001-1.035); Urine WBC <1 /hpf (0 - 3)
[2019-05-14 14:32] LABS: Alcohol, Urine < 3.0 mg/dL (0-5); Amphetamine Screen, Urine NEGATIVE (NEGATIVE); Barbiturate Scree,Urine NEGATIVE (NEGATIVE); Benzodiazephine Screen, Urine NEGATIVE (NEGATIVE); Cannabinoid Screen, Urine POSITIVE (NEGATIVE); Cocaine Screen, Urine NEGATIVE (NEGATIVE); Opiate Scree,Urine NEGATIVE (NEGATIVE); Phencyclidine Screen, Urine NEGATIVE (NEGATIVE)
[2019-05-14 17:40] VITALS: BP 135/69
== END 2019-05-14 17:53 | disposition home or self-care (01) ==
LOC: ER 11:26
DX: F12.188 Cannabis abuse with other cannabis-induced disorder (principal); R42 Dizziness and giddiness; Z79.899 Other long term (current) drug therapy
CPT/HCPCS: 36415; 74176; 80053; 80307; 81001; 83690; 83735; 85025; 94761; 96374; 96375; 99284; J2405; J3490; J7030

== ENCOUNTER 2023-03-30 18:36 | Emergency (ER) | payer OTHER ==
[~2023-03-30] VITALS: Ht 175.3 cm; Wt 73.2 kg
[~2023-03-30 18:36] MED LIST changes: -CIPR-217 PO; +CIPR500T4 PO; +METR-344 PO; -METR500T14 PO
[2023-03-30] MEDS ORDERED: IBUP-1455 PO (19:52)
[2023-03-30 21:33] VITALS: BP 152/94; PULSE 70; RESP 18; TEMP 99.3; O2SAT 99
== END 2023-03-30 21:35 | disposition home or self-care (01) ==
LOC: ER 18:36
DX: S20.211A Contusion of right front wall of thorax, initial encounter (principal); F12.10 Cannabis abuse, uncomplicated; Z90.89 Acquired absence of other organs; X50.1XXA Overexertion from prolonged static or awkward postures, initial encounter; Y93.89 Activity, other specified; Y92.89 Other specified places as the place of occurrence of the external cause; Y99.8 Other external cause status
CPT/HCPCS: 71101

== ENCOUNTER 2024-04-23 08:13 | Emergency (ER) | payer OTHER ==
[~2024-04-23] VITALS: Ht 175.3 cm; Wt 83.0 kg
[~2024-04-23 08:13] MED LIST changes: +IBUP-1455 PO
[2024-04-23 09:06] VITALS: BP 130/73; PULSE 77; RESP 18; TEMP 97.8; O2SAT 99
== END 2024-04-23 09:08 | disposition home or self-care (01) ==
LOC: ER 08:13
DX: M79.602 Pain in left arm (principal); F12.90 Cannabis use, unspecified, uncomplicated; Z79.899 Other long term (current) drug therapy; Z90.49 Acquired absence of other specified parts of digestive tract

== ENCOUNTER → 2024-05-08 | Outpatient (CLI) | payer OTHER ==
[2024-05-08 12:13] LABS: Urine Bacteria None Seen /hpf (None Seen)
[2024-05-08 12:34] LABS: Basophils # (auto) 0 10 ^3/uL (0-0.2); Eosinophils # (auto) 0.2 10 ^3/uL (0-0.8); Hemoglobin 16.1 g/dL (13.5-17.5); Platelet Count (auto) 161 10^3/uL (140-450)
[2024-05-08 12:36] LABS: Basophils % (auto) 0.5 % (0.0-2.0); Eosinophils % (auto) 2.9 % (0.0-7.0); Hematocrit 46.6 % (41.0-53.0); Lymphocytes # (auto) 1.1 10 ^3/uL (0.4-5.4); Lymphocytes % (auto) 17.4 % (10.0-50.0); Mean Corpuscular Hemoglobin 26.7 pg (28.0-32.0); Mean Corpuscular Hgb Conc. 34.5 g/dL (32.0-36.0); Mean Corpuscular Volume 77.2 fL (80.0-100.0); Monocytes # (auto) 0.4 10 ^3/uL (0-1.3); Monocytes % (auto) 6.8 % (0.0-12.0); Neutrophils # (auto) 4.8 10 ^3/uL (1.6-8.6); Neutrophils % (auto) 72.4 % (37.0-80.0); Nucleated Red Blood Cells % 0.4 %; Red Blood Cells 6.04 10^6/uL (4.5-5.90); Red Cell Distribution Width 14.2 % (11.8-14.3); White Blood Cell 6.6 10^3/uL (4.4-10.8)
[2024-05-08 12:53] LABS: Urine Blood Negative /uL (Negative); Urine Clarity Clear (Clear); Urine Color Yellow (Yellow); Urine Protein, UAD Negative (Negative); Urine Specific Gravity 1.028 (1.001-1.035); Urine Urobilinogen Normal (Negative); Urine WBC 1 /hpf (0 - 3); Urine pH 5.5 (5.0-9.0)
[2024-05-08 13:23] LABS: Amphetamine Screen, Urine Neg (NEGATIVE)
[2024-05-08 13:25] LABS: Barbiturate Scree,Urine Neg (NEGATIVE); Benzodiazephine Screen, Urine Neg (NEGATIVE); Cannabinoid Screen, Urine Pos (NEGATIVE); Cocaine Screen, Urine Neg (NEGATIVE); Opiate Scree,Urine Neg (NEGATIVE); Phencyclidine Screen, Urine Neg (NEGATIVE)
[2024-05-08 13:27] LABS: Alanine Aminotransferase 21 U/L (7-40); Alkaline Phosphatase 63 U/L (46-116); Anion Gap 6 (5-15); Aspartate Aminotransferase < 8 U/L (13-40); BUN/Creatinine Ratio 10.2 (10.0-20.0); Bilirubin, Total 1.2 mg/dL (0.2-1.0); Blood Urea Nitrogen 11 mg/dL (9-23); Carbon Dioxide 28 mmol/L (20-30); Chloride 106 mmol/L (98-107); Cholesterol 133 mg/dL (< 200); Glucose 92 mg/dL (74-106); HDL Cholesterol 30 mg/dL (40-59); LDL Cholesterol 87 mg/dL (< 100); Potassium 4.3 mmol/L (3.5-5.1); Sodium 140 mmol/L (136-145); Total Protein 7.7 g/dL (5.7-8.2); Triglycerides 82 mg/dL (< 150)
[2024-05-08 13:54] LABS: Uric Acid 7.5 mg/dL (3.7-9.2)
== END | disposition home or self-care (01) ==
LOC: LAB 12:04
PROVIDERS: ATTEND Internal Medicine
DX: I10 Essential (primary) hypertension (principal); R07.9 Chest pain, unspecified
CPT/HCPCS: 36415; 80053; 80061; 80307; 81001; 84550; 85025; 85379

== ENCOUNTER → 2024-10-14 | Outpatient (CLI) | payer OTHER ==
[2024-10-14 10:25] LABS: Urine Bacteria None Seen /hpf (None Seen)
[2024-10-14 11:12] LABS: Urine Blood Negative /uL (Negative); Urine Clarity Clear (Clear); Urine Color Light-Yellow (Yellow); Urine Protein, UAD Negative (Negative); Urine Specific Gravity 1.012 (1.001-1.035); Urine Squamous Epithelial Cell None Seen /hpf (<5); Urine Urobilinogen Normal (Negative); Urine pH 5.5 (5.0-9.0)
[2024-10-14 11:15] LABS: Basophils # (auto) 0 10 ^3/uL (0-0.2); Eosinophils # (auto) 0.2 10 ^3/uL (0-0.8); Lymphocytes # (auto) 1.3 10 ^3/uL (0.4-5.4); Monocytes # (auto) 0.5 10 ^3/uL (0-1.3)
[2024-10-14 11:23] LABS: Basophils % (auto) 0.3 % (0.0-2.0); Eosinophils % (auto) 2.7 % (0.0-7.0); Hematocrit 47.5 % (41.0-53.0); Hemoglobin 16.1 g/dL (13.5-17.5); Lymphocytes % (auto) 19.1 % (10.0-50.0); Mean Corpuscular Hgb Conc. 33.9 g/dL (32.0-36.0); Mean Corpuscular Volume 76.9 fL (80.0-100.0); Monocytes % (auto) 6.5 % (0.0-12.0); Neutrophils % (auto) 71.4 % (37.0-80.0); Nucleated Red Blood Cells % 0.1 %; Platelet Count (auto) 173 10^3/uL (140-450); Red Blood Cells 6.18 10^6/uL (4.5-5.90); Red Cell Distribution Width 14.5 % (11.8-14.3); White Blood Cell 6.9 10^3/uL (4.4-10.8)
[2024-10-14 12:04] LABS: Alanine Aminotransferase 23 U/L (7-40); Alkaline Phosphatase 61 U/L (46-116); Amylase 59 U/L (30-118); Anion Gap 7 (5-15); BUN/Creatinine Ratio 10.7 (10.0-20.0); Blood Urea Nitrogen 11 mg/dL (9-23); CRP High Sensitivity 0.03 mg/dL (<1.0); Carbon Dioxide 29 mmol/L (20-31); Chloride 104 mmol/L (98-107); Glucose 97 mg/dL (74-106); Potassium 4.5 mmol/L (3.5-5.1); Sodium 140 mmol/L (136-145); Total Protein 7.5 g/dL (5.7-8.2)
[2024-10-14 12:09] LABS: Erythrocyte Sedimentation Rate 1 mm/hr (0-20)
[2024-10-14 12:12] LABS: Albumin 5.1 g/dL (3.2-4.8); Aspartate Aminotransferase < 8 U/L (13-40)
[2024-10-14 12:25] LABS: Lipase 35 U/L (12-53)
== END | disposition home or self-care (01) ==
LOC: LAB 10:10
PROVIDERS: ATTEND Internal Medicine
DX: R16.0 Hepatomegaly, not elsewhere classified (principal); R07.9 Chest pain, unspecified; R05.9 Cough, unspecified; R10.9 Unspecified abdominal pain
CPT/HCPCS: 36415; 80053; 81001; 82150; 83690; 85025; 85379; 85652; 86141

== ENCOUNTER 2024-11-25 15:02 | Emergency (ER) | payer OTHER ==
[~2024-11-25] VITALS: Ht 175.3 cm; Wt 82.1 kg
[2024-11-25 15:45] VITALS: BP 140/90; PULSE 74; RESP 16; TEMP 98.9; O2SAT 96
[2024-11-25] MEDS ORDERED: CEPH500C PO (16:07)
[2024-11-25] MEDS ORDERED: IBUP1TAB5 PO (16:07)
[2024-11-25] MEDS ORDERED: MUPI2CRE17 EX (16:07)
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
[2024-11-25] MEDS: IBUPROFEN 600 MG TAB PO ONE (16:18)
[2024-11-25] MEDS: NEOMYCIN-BACITRACIN-POLYM UNITDOSE PKG TOP OINT TOP ONE (16:41)
== END 2024-11-25 16:50 | disposition home or self-care (01) ==
LOC: ER 15:02
DX: T25.222A Burn of second degree of left foot, initial encounter (principal); F12.90 Cannabis use, unspecified, uncomplicated; Z90.49 Acquired absence of other specified parts of digestive tract; Z79.899 Other long term (current) drug therapy; X10.1XXA Contact with hot food, initial encounter; Y93.89 Activity, other specified; Y92.89 Other specified places as the place of occurrence of the external cause; Y99.8 Other external cause status
CPT/HCPCS: 16000